=== PATIENT | female | born 1975 | race Caucasian/White ===

== ENCOUNTER → 2021-10-16 08:15 | Outpatient (CLI) | payer MEDICARE, SELFPAY ==
[2021-10-16 17:38] LABS: SARS-CoV-2 RNA PCR Negative
== END ==
PROVIDERS: PCP Nurse Practitioner Adult Health; Visit Provider Nurse Practitioner Adult Health
DX: Z20.822 Contact with and (suspected) exposure to COVID-19 (principal)
CPT/HCPCS: C9803; U0003; U0005

== ENCOUNTER 2023-08-03 11:14 | Outpatient (CLI) | payer MEDICARE, BC, SELFPAY ==
--- NOTE | ~2023-08-03 | US_ITS ---
Limited Abdominal Sonogram: Real-time sonographic imaging of the right upper quadrant was performed. Clinical History: Abnormal liver enzymes Findings: The liver appears normal with no evidence of mass lesion or bile duct dilatation. Main por kenna vein demonstrates normal direction of flow. The gallbladder is well distended, and appears normal with no evidence of gallstone or wall thickening. The common bile duct measures 4 mm. The visualize d pancreas, aorta, and IVC are unremarkable. Impression: No significant abnormality seen. Reviewed, dictated and finalized at location M. ERIST Impression: No significant abnormality seen.
== END 2023-08-03 11:15 | disposition home or self-care (01) ==
PROVIDERS: PCP Nurse Practitioner Family; Visit Provider Nurse Practitioner Family
DX: R74.8 Abnormal levels of other serum enzymes (principal)
CPT/HCPCS: 76705

== ENCOUNTER 2023-10-02 14:06 | Emergency (ER) | payer MEDICARE, BC, SELFPAY ==
--- NOTE | ~2023-10-02 | CT_ITS ---
EXAMINATION: CT cervical spine wo con DATE: 10/02/2023 17:02 INDICATION: Neck pain radiating down the right arm. Numbness in the fingertips. Fall. TECHNIQUE: Computed tomography (CT) of the cervical spine was performed without intravenous contrast. Automated exposure control and iterative reconstruction technique were employed. The dose-length pro duct was 122.13 mGy-cm. COMPARISON: None FINDINGS: There is 5 degrees dextrocurvature of cervical spine. Vertebral body heights are normal. Th ere is a hemangioma in T1 vertebral body. There is mildly decreased disc height at C3-C4 and moderate ly decreased disc height at C5-C6 and C6-C7. The following disc levels are specifically discussed: C2-C3: There is mild right and moderate left uncovertebral joint osteoarthritis. There is mild bilate ral facet joint osteoarthritis. There is mild bilateral neural foraminal stenosis. There is no centra l canal stenosis. C3-C4: There is moderate right and severe left uncovertebral joint osteoarthritis. There is mild bila teral facet joint osteoarthritis. There is mild bilateral neural foraminal stenosis. There is no cent ral canal stenosis. C4-C5: There is moderate right and mild left uncovertebral joint osteoarthritis. There is no facet kaylynn int osteoarthritis. There is mild right neural foraminal stenosis. There is no central canal stenosis . C5-C6: There is severe bilateral uncovertebral joint osteoarthritis. There is moderate right and mild left facet joint osteoarthritis. There is mild right and moderate left neural foraminal stenosis. Th ere is mild central canal stenosis. C6-C7: There is mild right and severe left uncovertebral joint osteoarthritis. There is moderate bila teral facet joint osteoarthritis. There is mild bilateral neural foraminal stenosis. There is mild ce ntral canal stenosis. C7-T1: There is no uncovertebral joint osteoarthritis. There is mild right and severe left facet join t osteoarthritis. There is mild left neural foraminal stenosis. There is no central canal stenosis. IMPRESSION: 1. No fracture. 2. Moderate cervical spondylosis. Reviewed, dictated and finalized at location A. TEACHER
[2023-10-02 14:32] VITALS: BP 148/88; PULSE 90; RESP 16; TEMP 36.4; O2SAT 99
[2023-10-02 16:39] VITALS: BP 127/82; PULSE 61; RESP 15; TEMP 36.4; O2SAT 100
--- NOTE | 2023-10-02 17:10 | ED.FALL ---
HPI - Fall General Chief Complaint: Fall Stated Complaint: neck, RLE pain Time Seen by Provider: 10/02/23 16:48 Source: patient Mode of arrival: ambulatory Limitations: no limitations and language barrier History of Present Illness HPI Narrative: Patient is a 48-year-old female who presents the ED with report of neck and right upper extremity pain. Patient is communicating to me via writing on small note pad. She reports she has a social anxiety disorder called selective mutism. She reports she tripped and fell on 09/05/2022 and injured herself. She strained her neck at that time. She was not evaluated after the fall. Since then, she has been having pain in her right-sided neck radiating down her right arm. She has intermittent numbness and tingling in her 1st two digits. Denies weakness in right upper extremity. Denies dropping objects. She has not tried anything for the pain. She has not seen anybody for this pain. Denies dizziness, lightheadedness, vision changes, head injury, nausea, vomiting. Related Data Allergies Allergy/AdvReac Type Severity Reaction Status Date / Time No Known Allergies Allergy Verified 10/02/23 14:37 Review of Systems Review of Systems: CONSTITUTIONAL: Denies fever, chills, or sweats. GASTROINTESTINAL: Denies abdominal pain, nausea, vomiting MUSCULOSKELETAL: See HPI NEUROLOGIC: See HPI All systems reviewed & are unremarkable except as noted in HPI and below Exam Narrative: GENERAL: Well appearing, thin, non-toxic, in no acute distress. HEAD: Normocephalic, atraumatic. NECK: No limited range of motion. No significant midline spinal tenderness. Tenderness to palpation along the right paraspinal musculature extending into right trapezius region. RESPIRATORY: Airway patent, respirations nonlabored. Clear to auscultation bilaterally, no rales, rhonchi, wheezing. CARDIOVASCULAR: Regular rate and rhythm without murmurs, rubs, or gallops. Radial pulses 2+ and easily palpable bilaterally. MUSCULOSKELETAL: Moves all extremities. No gross deformities. No midline thoracic or lumbar spinal tenderness. SKIN: Warm, dry, normal color. NEURO: A&O X3. Refusing to speak. cranial nerves II-XII grossly intact. Steady gait. No ataxic movements. Equal military science teacher strength bilaterally. Strength 5/5 in upper extremities. No weakness noted of right upper extremity. PSYCHIATRIC: Anxious, avoiding eye contact, refusing to speak. Course Vital Signs Vital signs: Vital Signs Temperature 97.6 F 10/02/23 14:32 Pulse Rate 90 10/02/23 14:32 Respiratory Rate 16 10/02/23 14:32 Blood Pressure 148/88 H 10/02/23 14:32 Pulse Oximetry 99 10/02/23 14:32 Temperature 97.6 F 10/02/23 16:39 Pulse Rate 61 10/02/23 16:39 Respiratory Rate 15 10/02/23 16:39 Blood Pressure 127/82 10/02/23 16:39 Pulse Oximetry 100 10/02/23 16:39 MDM - Fall MDM Narrative Medical decision making narrative: Patient present in the ED several weeks status post ground level mechanical fall, pain to right-sided neck into right upper extremity, intermittent paresthesias. Vital signs stable upon arrival. Patient neurovascularly intact. No evidence of neurovascular compromise, compartment syndrome. Symptoms consistent with cervical strain, cervical radiculopathy, tenderness throughout right-sided paraspinal musculature in cervical region. There is no weakness or sensation changes throughout right upper extremity upon my evaluation. Patient has not tried anything for pain prior to arrival. Offered to provide something in the ED, however patient declined. CT of the cervical spine was obtained and showing moderate spondylosis, no acute fractures or traumatic findings. Patient updated on imaging findings. Will be referred to Neurosurgery for further evaluation. Will prescribe lidocaine patches. Offered to prescribe muscle relaxers and patient declined. Advised to utilize Tylenol and ibuprofen if needed for pain. Give
== END 2023-10-02 17:38 | disposition home or self-care (01) ==
PROVIDERS: Emergency Provider Physician Assistant; PCP Nurse Practitioner Family
DX: S16.1XXA Strain of muscle, fascia and tendon at neck level, initial encounter (principal); M47.22 Other spondylosis with radiculopathy, cervical region; F94.0 Selective mutism; W01.0XXA Fall on same level from slipping, tripping and stumbling without subsequent striking against object, initial encounter
CPT/HCPCS: 72125; 99284

== ENCOUNTER 2023-11-02 09:55 | Outpatient (CLI) | payer MEDICARE, BC, SELFPAY ==
[2023-11-02 12:47] LABS: Hematocrit 40.7 % (37.0-47.0); Hemoglobin 13.7 g/dL (12.0-15.0); Mean Corpuscular HGB Conc 33.7 g/dl (32-36); Mean Corpuscular Hemoglobin 31.6 pg (26-34); Mean Platelet Volume 10.4 fl (7.4-10.4); Platelet Count Result 251 k/mm3 (150-375); Red Blood Count 4.33 M/mm3 (4.2-5.4); Red Cell Distribution Width 12.4 % (11.5-14.5); White Blood Count 5.4 K/mm3 (4.5-10.0)
[2023-11-02 13:03] LABS: Alanine Aminotransferase 27 U/L (6-35); Albumin Level 4.6 g/dL (3.5-5.1); Alkaline Phosphatase 66 U/L (38-126); Anion Gap 9 mmol/L (8-16); Aspartate Amino Transferase 52 U/L (14-36); Bilirubin,Total 1.8 mg/dL (0.2-1.3); Blood Urea Nitrogen 18 mg/dL (7-17); Calcium 9.8 mg/dL (8.4-10.2); Carbon Dioxide 25 mmol/L (22-30); Chloride 104 mmol/L (98-107); Cholesterol 196 mg/dL (0-200); Estimated Glomerular Filt Rate > 60; Glucose 96 mg/dL (65-110); HDL Direct 60 mg/dL; Potassium 3.6 mmol/L (3.4-5.0); Sodium 138 mmol/L (137-145); Triglycerides 88 mg/dL (<150)
[2023-11-02 13:18] LABS: Vitamin D 25 Hydroxy 53.3 ng/mL
[2023-11-02 13:26] LABS: LDL Cholesterol Direct 102 mg/dL
== END 2023-11-02 09:56 | disposition home or self-care (01) ==
LOC: ANHGOSHLAB 09:57
PROVIDERS: PCP Family Medicine; Visit Provider Nurse Practitioner
DX: E03.9 Hypothyroidism, unspecified (principal); E55.9 Vitamin D deficiency, unspecified; Z76.89 Persons encountering health services in other specified circumstances
CPT/HCPCS: 36415; 80053; 80061; 82306; 84443; 85027

== ENCOUNTER 2024-03-13 20:14 | Outpatient (NON) | payer MEDICARE, BC, SELFPAY | END 2024-03-13 20:15 | disposition home or self-care (01) | LOC: ANHLAB 20:21 | PROVIDERS: PCP Family Medicine; Visit Provider Nurse Practitioner | DX: R30.0 Dysuria (principal) | CPT/HCPCS: 87086; 87088 ==

== ENCOUNTER 2024-03-19 14:40 | Outpatient (NON) | payer MEDICARE, BC, SELFPAY ==
[2024-03-19 19:58] LABS: Appearance Urine Turbid (Clear); Bacteria Urine None Seen /hpf; Bilirubin Urine Negative (Negative); Blood Urine Negative (Negative); Calcium Oxalate Crystals Urine Present /hpf; Color Urine Yellow (Yellow); Glucose Urine UA Negative (Negative); Ketones Urine Trace mg/dL (Negative); Leukocyte Esterase Ur Negative LEU/UL (Negative); Need Manual Microscopic Reviewed; Nitrate Urine Negative (Negative); Non Pathogenic Casts 0-2; Protein Urine Negative (Negative); Specific Grav Ur 1.026 (1.001-1.035); Squamous Epithelial Cell Urine Occasional /hpf (Few); WBC Urine 0-5 /hpf (0-3)
[2024-03-19 20:00] LABS: Add Urine Microscopic? YES
== END 2024-03-19 14:41 | disposition home or self-care (01) ==
LOC: ANHGOSHLAB 14:43
PROVIDERS: PCP Family Medicine; Visit Provider Nurse Practitioner
DX: R31.9 Hematuria, unspecified (principal)
CPT/HCPCS: 81001

== ENCOUNTER 2024-04-29 15:07 | Outpatient (CLI) | payer MEDICARE, BC, SELFPAY ==
[2024-04-29 19:56] LABS: Alanine Aminotransferase 27 U/L (6-35); Albumin Level 4.6 g/dL (3.5-5.1); Alkaline Phosphatase 62 U/L (38-126); Anion Gap 10 mmol/L (4-12); Aspartate Amino Transferase 50 U/L (14-36); Bilirubin,Total 1.8 mg/dL (0.2-1.3); Blood Urea Nitrogen 17 mg/dL (7-17); Calcium 9.9 mg/dL (8.4-10.2); Carbon Dioxide 26 mmol/L (22-30); Chloride 104 mmol/L (98-107); Cholesterol 198 mg/dL (0-200); Estimated Glomerular Filt Rate > 60; Glucose 97 mg/dL (65-110); HDL Direct 62 mg/dL; Potassium 4.1 mmol/L (3.4-5.0); Sodium 140 mmol/L (137-145); Triglycerides 72 mg/dL (<150)
[2024-04-29 20:06] LABS: LDL Cholesterol Direct 98 mg/dL
[2024-04-29 20:27] LABS: Free T4 Free Thyroxine 1.44 ng/mL (0.78-2.19); Vitamin D 25 Hydroxy 29.6 ng/mL
== END 2024-04-29 15:08 | disposition home or self-care (01) ==
PROVIDERS: PCP Family Medicine; Visit Provider Nurse Practitioner
DX: E78.5 Hyperlipidemia, unspecified (principal); E55.9 Vitamin D deficiency, unspecified; E03.9 Hypothyroidism, unspecified
CPT/HCPCS: 36415; 80053; 80061; 82306; 84439; 84443

== ENCOUNTER 2024-05-02 13:06 | Outpatient (CLI) | payer MEDICARE, BC, SELFPAY ==
[2024-05-02 19:14] LABS: Bilirubin Indirect 0.9 mg/dL (0-1.1)
[2024-05-02 19:59] LABS: Hepatitis B Surface Antigen Negative (Negative)
[2024-05-02 20:05] LABS: HAV RESULT Negative (Negative); Hepatitis B Core IgM Result Negative (Negative)
[2024-05-02 20:16] LABS: Hepatitis C Virus Antibody Negative (Negative)
== END 2024-05-02 13:07 | disposition home or self-care (01) ==
LOC: ANHGOSHLAB 13:07
PROVIDERS: PCP Family Medicine; Visit Provider Nurse Practitioner
DX: R74.01 Elevation of levels of liver transaminase levels (principal); R74.8 Abnormal levels of other serum enzymes
CPT/HCPCS: 36415; 80074; 82248

== ENCOUNTER 2024-05-08 08:07 | Outpatient (CLI) | payer MEDICARE, BC, SELFPAY ==
--- NOTE | ~2024-05-08 | US_ITS ---
Limited Abdominal Sonogram: Real-time sonographic imaging of the right upper quadrant was performed. Clinical History: Abnormal serum enzyme levels Findings: The liver appears normal with no evidence of mass lesion or bile duct dilatation. Main por kenna vein demonstrates normal direction of flow. The gallbladder is well distended, and appears normal with no evidence of gallstone or wall thickening. The common bile duct measures 5 mm. The visualize d pancreas, aorta, and IVC are unremarkable. Impression: No significant abnormality seen. Reviewed, dictated and finalized at location M. Impression: No significant abnormality seen.
== END 2024-05-08 08:08 | disposition home or self-care (01) ==
PROVIDERS: PCP Family Medicine; Visit Provider Nurse Practitioner
DX: R74.8 Abnormal levels of other serum enzymes (principal)
CPT/HCPCS: 76705

== ENCOUNTER 2024-09-09 10:26 | Outpatient (CLI) | payer MEDICARE, BC, SELFPAY ==
--- NOTE | ~2024-09-09 | MR_ITS ---
EXAMINATION: MR cervical spine wo con DATE: 09/09/2024 11:14 INDICATION: Disease of the cervical. Cervical spondylosis. Spinal cord TECHNIQUE: Magnetic resonance imaging (MRI) of the cervical spine was performed without intravenous c ontrast. Sequences included sagittal T2-weighted FSE, sagittal T2-weighted FS FSE, sagittal T1-weight ed FSE, axial MERGE and axial T2-weighted FSE. COMPARISON: CT dated 10/02/2023 FINDINGS: Bone alignment is normal. Vertebral body heights are normal. T1 hyperintense hemangioma at T1. Marro w signal is otherwise normal. Moderate disc height loss at C5-C6 and C6-C7. Mild disc height loss at C4-C5 Cord signal intensity is normal. Cervical soft tissues are unremarkable. The following disc lev els are specifically discussed: C2-C3: The disc does not extend beyond the endplate margin. There is mild left and moderate right unc overtebral joint osteoarthritis. There is mild bilateral facet joint osteoarthritis. There is mild bi lateral neural foraminal stenosis. There is no central canal stenosis. C3-C4: Disc is bulging. There is moderate to severe bilateral uncovertebral joint osteoarthritis. The re is mild bilateral facet joint osteoarthritis. There is mild bilateral neural foraminal stenosis. T here is mild central canal stenosis. C4-C5: Disc is bulging. There is mild left and moderate right uncovertebral joint osteoarthritis. The re is minimal bilateral facet joint osteoarthritis. There is mild bilateral neural foraminal stenosis . There is mild central canal stenosis. C5-C6: Posterior disc osteophyte complex. There is moderate right and severe left uncovertebral joint osteoarthritis. There is mild left facet joint osteoarthritis. There is mild right and moderate left neural foraminal stenosis. There is mild central canal stenosis. C6-C7: Posterior disc osteophyte complex. There is mild right and severe left uncovertebral joint ost eoarthritis. There is moderate left and mild right facet joint osteoarthritis. There is moderate righ t and mild to moderate left neural foraminal stenosis. There is mild central canal stenosis. C7-T1: Disc is bulging. There is mild right uncovertebral joint osteoarthritis. There is mild right a nd moderate left facet joint osteoarthritis. There is mild left neural foraminal stenosis. There is n o central canal stenosis. IMPRESSION: 1. Moderate cervical spondylosis. Reviewed, dictated and finalized at location A. E SHOP SUPERVISOR
--- NOTE | ~2024-09-09 | XR_ITS ---
Lumbosacral Spine: AP and lateral views Clinical History: Pain Findings: The normal lordotic curve is maintained. Possible mild compression deformities of L1 and L2 , age-indeterminate. The intervertebral disc spaces are preserved. There is mild facet arthropathy. The sacroiliac joints are normally outlined. Impression: Possible mild compression deformities of L1 and L2, age indeterminate. Reviewed, dictated and finalized at location . NCE ASSISTANT Impression: Possible mild compression deformities of L1 and L2, age indeterminate.
--- OUTSIDE RECORDS SUMMARY | 2024-09-12 12:46 | XMS_ITS | Continuity of Care Document ---
Author Organization [facility] Address [address] [place] [address] [place] [address] Phone Care Team Providers Care Entry Level Sales Representative Name Role Phone Unavailable Unavailable Unavailable Advance Directives Directive Yes / No Effective Date File Name No Information Encounters Encounter Description Practice Location Reason(s) For Visit Diagnoses Date Provider Providers Copied on Encounter [facility], [address] [place] [address] [address], [place], [place], [id number], [place] tel:[phone] SEC [facility] No Information [id number] No Information Family History Family Member Type Diagnosis Age At Onset No Information Payers Payer name Insurance type Covered green party ID Authoriza tion(s) No Information Social History [...]
--- OUTSIDE RECORDS SUMMARY | 2024-09-12 12:46 | XMS_ITS | CONTINUITY OF CARE DOCUMENT ---
Author Name meghana kowalski Address Unknown Organization [facility] Address [address] [place] [address] [address] [place] [address] Phone [phone] Care Team Providers Care Automotive Drivability Technician Name Role Phone Barbara Flores MD Unavailable DENISE SALDANA MD Unavailable DENISE SALDANA MD Unavailable INSURANCE PROVIDERS Payer name Policy type / Coverage type [place] red constitution party ID [facility] [id number] [place] [employer] Medicare [id number]
== END 2024-09-09 10:27 | disposition home or self-care (01) ==
PROVIDERS: PCP Family Medicine; Visit Provider Psychiatry & Neurology Neurology
DX: M43.02 Spondylolysis, cervical region (principal)
CPT/HCPCS: 72100; 72141

== ENCOUNTER 2024-12-10 10:21 | Outpatient (CLI) | payer MEDICARE, BC, SELFPAY ==
--- OUTSIDE RECORDS SUMMARY | 2024-12-10 11:50 | XMS_ITS | CONTINUITY OF CARE DOCUMENT ---
Author Name meghana kowalski Address Unknown Organization [facility] Address [address] [place] [address] [address] [place] [address] Phone [phone] Care Team Providers Care Supervisor Color Making Name Role Phone Barbara Flores MD Unavailable DENISE SALDANA MD Unavailable DENISE SALDANA MD Unavailable [phone] INSURANCE PROVIDERS Payer name Policy type / Coverage type [place] red alliance party ID [facility] [id number] [place] MEDIC[employer] Medicare [id number]
--- OUTSIDE RECORDS SUMMARY | 2024-12-10 11:50 | XMS_ITS | Continuity of Care Document ---
Author Organization formerly [facility] Address [address] [place] [address] [place] [address] Phone Care Team Providers Care Senior Business Intelligence Analyst Name Role Phone Unavailable Unavailable Unavailable Advance Directives Directive Yes / No Effective Date File Name No Information Encounters Encounter Description Practice Location Reason(s) For Visit Diagnoses Date Provider Providers Copied on Encounter [facility], [address] [place] [address] [address], [place], [place], [id number], [place] tel:[phone] SEC [facility] No Information [id number] No Information Family History Family Member Type Diagnosis Age At Onset No Information Payers Payer name Insurance type Covered alliance party ID Authoriza tion(s) No Information Social [...]
[2024-12-10 14:37] LABS: Alanine Aminotransferase 28 U/L (6-35); Albumin Level 4.8 g/dL (3.5-5.1); Alkaline Phosphatase 86 U/L (38-126); Anion Gap 11 mmol/L (4-12); Aspartate Amino Transferase 37 U/L (14-36); Bilirubin,Total 1.2 mg/dL (0.2-1.3); Blood Urea Nitrogen 22 mg/dL (7-17); Calcium 9.6 mg/dL (8.4-10.2); Carbon Dioxide 24 mmol/L (22-30); Chloride 104 mmol/L (98-107); Cholesterol 215 mg/dL (0-200); Estimated Glomerular Filt Rate > 60; Glucose 90 mg/dL (65-110); HDL Direct 67 mg/dL; Hematocrit 44.4 % (37.0-47.0); Hemoglobin 14.9 g/dL (12.0-15.0); Mean Corpuscular HGB Conc 33.6 g/dl (32-36); Mean Corpuscular Hemoglobin 31.4 pg (26-34); Mean Corpuscular Volume 93.5 fl (80-100); Mean Platelet Volume 10.7 fl (7.4-10.4); Platelet Count Result 265 k/mm3 (150-375); Potassium 4.5 mmol/L (3.4-5.0); Red Blood Count 4.75 M/mm3 (4.2-5.4); Red Cell Distribution Width 12.1 % (11.5-14.5); Sodium 139 mmol/L (137-145); Triglycerides 66 mg/dL (<150); White Blood Count 5.3 K/mm3 (4.5-10.0)
[2024-12-10 14:48] LABS: LDL Cholesterol Direct 102 mg/dL
[2024-12-10 14:52] LABS: Free T4 Free Thyroxine 1.42 ng/dL (0.78-2.19); Vitamin D 25 Hydroxy 35.9 ng/mL
== END 2024-12-10 10:22 | disposition home or self-care (01) ==
LOC: ANHGOSHLAB 10:22
PROVIDERS: PCP Family Medicine; Visit Provider Nurse Practitioner
DX: E03.9 Hypothyroidism, unspecified (principal); R74.8 Abnormal levels of other serum enzymes; I10 Essential (primary) hypertension; E78.5 Hyperlipidemia, unspecified; E55.9 Vitamin D deficiency, unspecified
CPT/HCPCS: 36415; 80053; 80061; 82306; 84439; 84443; 85027

== ENCOUNTER 2024-12-16 07:00 | Outpatient (CLI) | payer MEDICARE, BC, SELFPAY ==
--- NOTE | ~2024-12-16 | MR_ITS ---
MRI of the lumbar spine Clinical History: Back pain Technique: Axial T2-weighted images, and sagittal T1-weighted, T2-weighted, and T2 fat-sat images wer e acquired. Findings: No fracture identified. There is minimal grade 1 retrolisthesis of L1 over L2. No suspiciou s bone marrow signal abnormality seen. At L1-L2, there is moderate degenerative distended with minimal disc bulge and moderate facet arthrop athy. No central canal stenosis or neural foraminal narrowing. At L2-L3, there is no disc bulge or herniation. There is mild to moderate facet arthropathy. No centr al canal stenosis or neural foraminal narrowing. L3-L4, there is no disc bulge or herniation. No spinal canal stenosis or neural foraminal narrowing. At L4-L5, there is minimal disc bulge with moderate facet arthropathy. No central canal stenosis. The re is mild left neural foraminal narrowing. Right neural foramen preserved. At L5-S1, there is minimal disc bulge and mild facet hypertrophy. No spinal canal stenosis. There is minimal left neural foraminal narrowing. Right neural foramen preserved. Paravertebral soft tissues are unremarkable. IMPRESSION: Mild degenerative spondylosis, as above. Reviewed, dictated and finalized at [facility] M.
== END 2024-12-16 07:01 | disposition home or self-care (01) ==
LOC: MICIMG 07:01
PROVIDERS: PCP Family Medicine; Visit Provider Psychiatry & Neurology Neurology
DX: S32.000A Wedge compression fracture of unspecified lumbar vertebra, initial encounter for closed fracture (principal); X58.XXXA Exposure to other specified factors, initial encounter; M47.896 Other spondylosis, lumbar region
CPT/HCPCS: 72148

== ENCOUNTER 2025-06-27 11:23 | Outpatient (CLI) | payer BC, SELFPAY ==
--- OUTSIDE RECORDS SUMMARY | 1999-07-19 09:00 | XMS_ITS | Continuity of Care Document ---
Author Organization [facility] Address [address] [place] [address] [place] [address] Phone Care Team Providers Care Chemistry Intern Name Role Phone Unavailable Unavailable Unavailable Advance Directives Directive Yes / No Effective Date File Name No Information Encounters Encounter Description Practice Location Reason(s) For Visit Diagnoses Date Provider Providers Copied on Encounter [facility], [address] [place] [address] [address], [place], [place], [id number], [place] tel:[phone] SEC [facility] No Information [id number] No Information Family History Family Member Type Diagnosis Age At Onset No Information Payers Payer name Insurance type Covered democrat ID Authoriza tion(s) No Information Social History Type Description Quantity Date Captured Comments Sex Female Smoking Status No Information Chief Complaint And Reason For Visit No Information Reason For Referral Reason For Referral No Information History Of Present Illness Encounter Date Complaint History Of Prese nt Illness No Information Functional Status Date Functional Assessmen t No Information Instructions Date Instruction Additional Infor mation No Information Assessments Type Assessment Date No Information Patient Care Teams Name Effective Dates (start - stop) Status Members No Information
--- OUTSIDE RECORDS SUMMARY | 2025-06-27 12:02 | XMS_ITS | Patient Health Record ---
Author Organization [facility] Address [address] [facility] [address] [place] [address] Care Team Providers Care Head Of Digital Name Role Phone Liz Wilkins Unavailable [phone] Reason For Referral No Information Medications Medication SIG (Take, Route, Frequency, Duration) Notes Start Date End Date Status Synthroid 50 MCG Tablet Oral Active Citalopram Hydrobromide 40 MG Tablet Oral Active Social History Social History Additional Details Category Social Info Options Details Migrated Social History Migrated Social History Tobacco Years: Never smoker 10/13/2022 Plan Of Treatment No Information Insurance Providers Payer Name Payer Address Payer Phone Subscriber Number Group Number Insured Name Patient Relationship to Insured Coverage Start Date Coverage End Date [facility] Ppo [address] [place] [address] [id number] Self - [facility] is the insured [facility] [address] [address] [place] [address] [id number] [address] Self - patient is the insured
[2025-06-27 13:07] LABS: Alanine Aminotransferase 27 U/L (6-35); Albumin Level 4.7 g/dL (3.5-5.1); Alkaline Phosphatase 67 U/L (38-126); Anion Gap 9 mmol/L (4-12); Aspartate Amino Transferase 45 U/L (14-36); Bilirubin,Total 2.3 mg/dL (0.2-1.3); Blood Urea Nitrogen 20 mg/dL (7-17); Calcium 9.3 mg/dL (8.4-10.2); Carbon Dioxide 23 mmol/L (22-30); Chloride 106 mmol/L (98-107); Cholesterol 197 mg/dL (0-200); Estimated Glomerular Filt Rate > 60; Glucose 87 mg/dL (65-110); HDL Direct 62 mg/dL; Potassium 3.9 mmol/L (3.4-5.0); Sodium 138 mmol/L (137-145); Total Protein 7.3 g/dL (6.3-8.2); Triglycerides 62 mg/dL (<150)
[2025-06-27 13:16] LABS: Free T4 Free Thyroxine 1.65 ng/dL (0.78-2.19)
[2025-06-27 13:44] LABS: Thyroid Stimulating Hormone 2.870 uIU/mL (0.465-4.680)
== END 2025-06-27 11:24 | disposition home or self-care (01) ==
LOC: ANHGOSHLAB 11:23
PROVIDERS: PCP Nurse Practitioner; Visit Provider Nurse Practitioner
DX: R74.8 Abnormal levels of other serum enzymes (principal); E03.9 Hypothyroidism, unspecified; E78.5 Hyperlipidemia, unspecified
CPT/HCPCS: 36415; 80053; 80061; 84439; 84443

== ENCOUNTER 2025-07-14 09:42 | Outpatient (CLI) | payer BC, SELFPAY ==
[2025-07-14 13:03] LABS: Hematocrit 42.5 % (37.0-47.0); Hemoglobin 14.0 g/dL (12.0-15.0); Mean Corpuscular HGB Conc 32.9 g/dl (32-36); Mean Corpuscular Hemoglobin 31.3 pg (26-34); Mean Corpuscular Volume 95.1 fl (80-100); Platelet Count Result 280 k/mm3 (150-375); Red Blood Count 4.47 M/mm3 (4.2-5.4); White Blood Count 5.3 K/mm3 (4.5-10.0)
[2025-07-14 13:12] LABS: Add Urine Microscopic? YES
[2025-07-14 13:17] LABS: Appearance Urine Turbid (Clear)
[2025-07-14 14:15] LABS: Hepatitis B Surface Antigen Negative (Negative)
[2025-07-14 14:21] LABS: HAV RESULT Negative (Negative); Hepatitis B Core IgM Result Negative (Negative)
== END 2025-07-14 09:43 | disposition home or self-care (01) ==
LOC: ANHGOSHLAB 09:43
PROVIDERS: PCP Nurse Practitioner; Visit Provider Nurse Practitioner
DX: R17 Unspecified jaundice (principal); R31.9 Hematuria, unspecified; R74.8 Abnormal levels of other serum enzymes
CPT/HCPCS: 36415; 80074; 81001; 85027

== ENCOUNTER 2025-07-21 15:32 | Emergency (ER) | payer BC, SELFPAY ==
[2025-07-21] VITALS (17 sets, daily range): BP systolic 117–150; BP diastolic 81–99; PULSE 72–94; RESP 14–18; TEMP 36.6–36.8; O2SAT 97–100
--- NOTE | ~2025-07-21 | CT_ITS ---
CT abdomen pelvis w con INDICATION:abdominal pain . COMPARISON: None. TECHNIQUE: Axial images of the abdomen and pelvis were obtained following infusion of 100 mL Isovue 300. Dose optimization technique was utilized. FINDINGS: The lung bases are clear. The liver parenchyma is unremarkable. No intrahepatic mass or ductal dilatation is evident. The gallbladder is unremarkable. The pancreas and spleen are normal in appearance. The adrenal glands are symmetric in size. The kidneys demonstrate symmetric uptake and excretion of contrast. Left renal cyst measures 9 mm. There is no solid mass. Mild right hydronephrosis secondary to a 10 x 6.8 mm stone at the ureteropelvic junction. There is no left hydronephrosis. Evaluation of the stomach and bowel loops are limited due to lack of oral contrast. The appendix is normal in appearance. The bladder and rectum are normal. No free intraperitoneal fluid or air is evident. There is no significant retroperitoneal lymphadenopathy. The aorta, visceral vessels and renal arteries demonstrate normal caliber and patency. The lower thoracic and lumbar vertebrae are in normal alignment. IMPRESSION: Mild right hydronephrosis secondary to a 10 x 6.8 mm stone at the UPJ. All CT scans at this facility are performed using low dose modulation techniques as appropriate to perform exam including the following: automated exposure control; use of iterative reconstruction technique; adjustment of the mA and/or kV according to patient size (this includes techniques or standardized protocols for targeted exams where dose is matched to indication/reason for exam). Reviewed, dictated and finalized at location S. NOM[facility] RESEARCH MANAGER IMPRESSION: Mild right hydronephrosis secondary to a 10 x 6.8 mm stone at the UPJ. All CT scans at this facility are performed using low dose modulation techniqu es as appropriate to perform exam including the following: automated exposure c ontrol; use of iterative reconstruction technique; adjustment of the mA and/or kV according to patient size (this includes techniques or standardized protocol s for targeted exams where dose is matched to indication/reason for exam).
--- NOTE | 2025-07-21 17:15 | ED.GENADULT ---
HPI - General Adult General Chief complaint: Urogenital-Female <LUCIAN Mcdaniels - Last Filed: 07/21/25 17:21> Stated complaint: uti <LUCIAN Mcdaniels - Last Filed: 07/21/25 17:21> Time Seen by Provider: 07/21/25 22:16 <LUCIAN Mcdaniels - Last Filed: 07/21/25 17:21> Focused HPI: 50 year old female presenting with concerns for a UTI. She reports she recently finished a course of antibiotics but is still experiencing increased urinary frequency/urgency as well as hematuria. She is also reporting diffuse lower abdominal pain and nausea. Denies fevers/chills, vomiting, diarrhea, chest pain/shortness of breath. GENERAL: No acute distress. HEAD: Normocephalic, atraumatic. CHEST: Clear to auscultation. ?No respiratory distress. HEART: Regular rate and rhythm.? NEURO: ?Alert and oriented x3. ABDOMEN: RLQ TTP Patient screened in triage and initial orders placed.? ?Additional care and disposition to be based upon?diagnostic testing and treatment. <LUCIAN Mcdaniels - Last Filed: 07/21/25 17:21> Source: patient <Keenan Melo DO - Last Filed: 07/21/25 23:12> Mode of arrival: ambulatory <Keenan Melo DO - Last Filed: 07/21/25 23:12> Limitations: no limitations <Keenan Melo DO - Last Filed: 07/21/25 23:12> History of Present Illness HPI narrative: Patient is a 50-year-old female presents to the emergency department accompanied by family with concerns for UTI. 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 Patient reportedly had a recent urinary tract infection with urinary frequency and was treated and completed treatment a couple days ago and still seems to be having symptoms. Patient does admit to some intermittent back discomfort. Denies any pain currently. Patient admits to nausea, denies vomiting. No known fevers. <Keenan Melo DO - Last Filed: 07/21/25 23:12> Related Data Home medications: Home Medications ?Medication ?Instructions ?Recorded ?Confirmed ?Last Taken ?Type multivitamin 1 tablet PO DAILY 11/02/23 06/19/25 Unknown History <LUCIAN Mcdaniels - Last Filed: 07/21/25 17:21> Allergies/adverse reactions: Allergies Allergy/AdvReac Type Severity Reaction Status Date / Time No Known Allergies Allergy Verified 07/21/25 16:06 <LUCIAN Mcdaniels - Last Filed: 07/21/25 17:21> Review of Systems Review of Systems: A 10 system review of systems was completed on the patient and is negative except for what is stated in the HPI. Nursing and ancillary documentation was reviewed. <Keenan Melo DO - Last Filed: 07/21/25 23:12> [facility] Past Medical History Medical History: Medical History BMI 20.0-20.9, adult Compression fracture of lumbosacral spine Lower back pain Cervical myelopathy with cervical radiculopathy <LUCIAN Mcdaniels - Last Filed: 07/21/25 17:21> Family History Family History: Family History Father Malignant neoplasm of prostate Hypertension Heart problem Cerebrovascular accident Mother Diabetes mellitus Hypertension Sibling Depression Anxiety Thyroid disorder Grandparent Hypertension Heart problem <LUCIAN Mcdaniels - Last Filed: 07/21/25 17:21> Social History Social History: Social History Social History: Caffeine- Tea, Cola Smoking status: Never smoker Second hand tobacco smoke exposure: No Alcohol intake: never Substance use: never Substance use type: does not use Lack of Transportation: No Lack of Food: Never True Current Housing: I Have Housing Concerned About Future Housing: No Difficulty Paying Gas/Electric Bills: No Difficulty Paying for Meds: No Currently Unemployed: No Education: High School Diploma/GED Difficulty w/ Childcare or Family Care: No Living arrangements: with family Occupation/Education: unemployed Gender identity (if verbalized by the patient): Female <LUCIAN Mcdaniels - Last Filed: 07/21/25 17:21> Exam Narrative: CONST: No acute distress. Well nourished. HENMT: Head is normocephalic and atraumatic. Moist mucous membranes. No posterior oropharynx erythema. EYES: No scleral icterus. No conjunctival injection or pallor. PERRL. NECK: No meningeal signs. RESP: Able to speak in full sentences. Normal respiratory effort. CTAB. CARDIO: Regular rate. Regular rhythm. 2+ DP and radial pulses bilaterally. GI: Nondistended. No tenderness to palpation. Soft. : No CVA tenderness to palpation. SKIN: No rashes or lesions noted on exposed skin. NEURO: Oriented x3. Moves all extremities. EXTREM/MSK/BACK: No pedal edema. PSYCH: Normal affect. <Keenan Melo DO - Last Filed: 07/21/25 23:12> Course Vital Signs Vital signs: Vital Signs Temperature 97.8 F 07/21/25 16:00 Pulse Rate 94 07/21/25 16:00 Respiratory Rate 16 07/21/25 16:00 Blood Pressure 150/81 H 07/21/25 16:00 Pulse Oximetry 100 07/21/25 16:00 Oxygen Delivery Room Air 07/21/25 16:00 Temperature 97.9 F 07/21/25 19:58 Pulse Rate 79 07/21/25 22:16 Respiratory Rate 14 07/21/25 22:16 Blood Pressure 139/99 H 07/21/25 22:16 Pulse Oximetry 99 07/21/25 22:16 Oxygen Delivery Room Air 07/21/25 16:00 <LUCIAN Mcdaniels - Last Filed: 07/21/25 17:21> Vital Signs Temperature 97.8 F 07/21/25 16:00 Pulse Rate 94 07/21/25 16:00 Respiratory Rate 16 07/21/25 16:00 Blood Pressure 150/81 H 07/21/25 16:00 Pulse Oximetry 100 07/21/25 16:00 Oxygen Delivery Room Air 07/21/25 16:00 Temperature 97.9 F 07/21/25 19:58 Pulse Rate 79 07/21/25 22:16 Respiratory Rate 14 07/21/25 22:16 Blood Pressure 139/99 H 07/21/25 22:16 Pulse Oximetry 99 07/21/25 22:16 Oxygen Delivery Room Air 07/21/25 16:00 <Keenan Melo DO - Last Filed: 07/21/25 23:12> [facility] Narrative Medical decision making narrative: Patient presents with the above complaint. Initial vitals are remarkable for no significant abnormalities. Physical examination as noted above. Plan discussed: laboratory analysis,imaging. Zofran, IV fluids. I spoke with Urology on-call Dr. luu who notes no need to keep the patient in the hospital for this, likely unable to pass the stone, will need to follow-up with them promptly tomorrow, call to schedule an appointment, notes no need for any antibiotics, strict return precautions such as fevers or any new or concerning pain her admitted keep anything down by mouth. <Keenan Melo DO - Last Filed: 07/21/25 23:12> Differential Diagnosis Differential Diagnosis: UTI, ureterolithiasis, metabolic derangement, electrolyte derangement. <Keenan Melo DO - Last Filed: 07/21/25 23:12> Lab Data [facility] Lab Attestation statement: I personally reviewed the patient's lab results. <Keenan Melo DO - Last Filed: 07/21/25 23:12> Lab results narrative: CBC reveals no significant abnormalities. CMP reveals a BUN 18, total bilirubin of 2. Lipase 91. Urinalysis reveals a cloudy appearance, 3+ protein, 1+ ketones, 3+ blood, 1+ leukocyte esterase, greater than 100 RBCs, 11-20 wbc's, no bacteria seen. Present test is negative. <Keenan Melo DO - Last Filed: 07/21/25 23:12> Result diagrams: 07/21/25 21:41 07/21/25 21:40 <Lisette Zarate PA - Last Filed: 07/21/25 17:21> Labs: Lab Results 07/21/25 07/21/25 Range/Units 21:40 21:41 WBC 6.0 (4.5-10.0) K/mm3 RBC 4.40 (4.2-5.4) M/mm3 Hgb 13.9 (12.0-15.0) g/dL Hct 40.7 (37.0-47.0) % MCV 92.5 (80-100) fl MCH 31.6 (26-34) pg MCHC 34.2 (32-36) g/dl RDW 12.1 (11.5-14.5) % Plt Count 274 (150-375) k/mm3 MPV 9.5 (7.4-10.4) fl Immature Gran % (Auto) 0.2 (0-0.5) % Neut % (Auto) 53.6 (45.5-73.1) % Lymph % (Auto) 33.4 (18.3-44.2) % Miller % (Auto) 10.4 H (2.6-8.5) % Eos % (Auto) 1.2 (0-4.4) % Baso % (Auto) 1.2 (0.2-1.2) % Lymph # (Auto) 1.99 (0.9-3.2) K/mm3 Miller # (Auto) 0.6 (0.1-0.6) K/mm3 Eos # (Auto) 0.1 (0-0.3) K/mm3 Baso # (Auto) 0.1 (0.0-0.1) K/mm3 Abs Immat Gran (auto) 0.01 (0.00-0.031) K/mm3 Absolute Neuts (auto) 3.2 (1.3-6.7) K/mm3 Absolute Nucleated RBC 0.000 (0.0-0.012) K/mm3 Nucleated RBC % 0.0 (0.0-0.2) % Sodium 139 (137-145) mmol/L Potassium 3.9 (3.4-5.0) mmol/L Chloride 108 H (98-107) mmol/L Carbon Dioxide 26 (22-30) mmol/L Anion Gap 5 (4-12) mmol/L BUN 18 H (7-17) mg/dL Creatinine 0.82 (0.7-1.0) mg/dL Estim Creat Clear Calc 59 ml/min Estimated GFR > 60 (59 - ) Glucose 96 (65-110) mg/dL Calcium 9.9 (8.4-10.2) mg/dL Total Bilirubin 2.0 H (0.2-1.3) mg/dL AST 30 (14-36) U/L ALT 24 (6-35) U/L Alkaline Phosphatase 60 (38-126) U/L Total Protein 7.2 (6.3-8.2) g/dL Albumin 4.6 (3.5-5.1) g/dL Lipase 91 (23-300) U/L Urine Color Dark yellow (Yellow) Urine Appearance Cloudy H (Clear) Urine pH 7.5 (5.0-9.0) Ur Specific [place] 1.024 (1.001-1.035) Urine Protein 3+ H (Negative) mg/dL Urine Glucose (UA) Negative (Negative) mg/dL Urine Ketones 1+ H (Negative) mg/dL Ur Blood (Man) 3+ H (Negative) Urine Nitrate Negative (Negative) Urine Bilirubin Negative (Negative) Urine Urobilinogen 1.0 (<2.0) mg/dL Leukocyte Esterase Rfl 1+ H (Negative) KASI/UL Urine RBC >100 H (0-2) /hpf Urine WBC 11-20 H (0-3) /hpf Ur Squamous Epith Cells None seen (Few) /hpf Urine Bacteria None seen /hpf Urine Casts 0-2 Urine Test Negative <LUCIAN Mcdaniels - Last Filed: 07/21/25 17:21> Lab Results 07/21/25 07/21/25 Range/Units 21:40 21:41 WBC 6.0 (4.5-10.0) K/mm3 RBC 4.40 (4.2-5.4) M/mm3 Hgb 13.9 (12.0-15.0) g/dL Hct 40.7 (37.0-47.0) % MCV 92.5 (80-100) fl MCH 31.6 (26-34) pg MCHC 34.2 (32-36) g/dl RDW 12.1 (11.5-14.5) % Plt Count 274 (150-375) k/mm3 MPV 9.5 (7.4-10.4) fl Immature Gran % (Auto) 0.2 (0-0.5) % Neut % (Auto) 53.6 (45.5-73.1) % Lymph % (Auto) 33.4 (18.3-44.2) % Miller % (Auto) 10.4 H (2.6-8.5) % Eos % (Auto) 1.2 (0-4.4) % Baso % (Auto) 1.2 (0.2-1.2) % Lymph # (Auto) 1.99 (0.9-3.2) K/mm3 Miller # (Auto) 0.6 (0.1-0.6) K/mm3 Eos # (Auto) 0.1 (0-0.3) K/mm3 Baso # (Auto) 0.1 (0.0-0.1) K/mm3 Abs Immat Gran (auto) 0.01 (0.00-0.031) K/mm3 Absolute Neuts (auto) 3.2 (1.3-6.7) K/mm3 Absolute Nucleated RBC 0.000 (0.0-0.012) K/mm3 Nucleated RBC % 0.0 (0.0-0.2) % Sodium 139 (137-145) mmol/L Potassium 3.9 (3.4-5.0) mmol/L Chloride 108 H (98-107) mmol/L Carbon Dioxide 26 (22-30) mmol/L Anion Gap 5 (4-12) mmol/L BUN 18 H (7-17) mg/dL Creatinine 0.82 (0.7-1.0) mg/dL Estim Creat Clear Calc 59 ml/min Estimated GFR > 60 (59 - ) Glucose 96 (65-110) mg/dL Calcium 9.9 (8.4-10.2) mg/dL Total Bilirubin 2.0 H (0.2-1.3) mg/dL AST 30 (14-36) U/L ALT 24 (6-35) U/L Alkaline Phosphatase 60 (38-126) U/L Total Protein 7.2 (6.3-8.2) g/dL Albumin 4.6 (3.5-5.1) g/dL Lipase 91 (23-300) U/L Urine Color Dark yellow (Yellow) Urine Appearance Cloudy H (Clear) Urine pH 7.5 (5.0-9.0) Ur Specific [place] 1.024 (1.001-1.035) Urine Protein 3+ H (Negative) mg/dL Urine Glucose (UA) Negative (Negative) mg/dL Urine Ketones 1+ H (Negative) mg/dL Ur Blood (Man) 3+ H (Negative) Urine Nitrate Negative (Negative) Urine Bilirubin Negative (Negative) Urine Urobilinogen 1.0 (<2.0) mg/dL Leukocyte Esterase Rfl 1+ H (Negative) KASI/UL Urine RBC >100 H (0-2) /hpf Urine WBC 11-20 H (0-3) /hpf Ur Squamous Epith Cells None seen (Few) /hpf Urine Bacteria None seen /hpf Urine Casts 0-2 Urine Test Negative <Keenan Melo DO - Last Filed: 07/21/25 23:12> Imaging Data Attestation: I personally reviewed and interpreted this imaging study as follows: <DO Augustus Rubin Last Filed: 07/21/25 23:12> Radiologist's impression: ITS Impressions Abdomen/Pelvis CT 07/21/25 22:36 IMPRESSION: Mild right hydronephrosis secondary to a 10 x 6.8 mm stone at the UPJ. All CT scans at this facility are performed using low dose modulation techniques as appropriate to perform exam including the following: automated exposure control; use of iterative reconstruction technique; adjustment of the mA and/or kV according to patient size (this includes techniques or standardized protocols for targeted exams where dose is matched to indication/reason for exam). <LUCIAN Mcdaniels Last Filed: 07/21/25 17:21> ITS Impressions Abdomen/Pelvis CT 07/21/25 22:36 IMPRESSION: Mild right hydronephrosis secondary to a 10 x 6.8 mm stone at the UPJ. All CT scans at this facility are performed using low dose modulation techniques as appropriate to perform exam including the following: automated exposure control; use of iterative reconstruction technique; adjustment of the mA and/or kV according to patient size (this includes techniques or standardized protocols for targeted exams where dose is matched to indication/reason for exam). <DO Augustus Rubin Last Filed: 07/21/25 23:12> Discharge Plan Discharge Clinical Impression: Ureterolithiasis <LUCIAN Mcdaniels Last Filed: 07/21/25 17:21> Patient Disposition: Home <LUCIAN Mcdaniels Last Filed: 07/21/25 17:21> Condition: Stable <LUCIAN Mcdaniels Last Filed: 07/21/25 17:21> Instructions: Antibiotic Form, Kidney Stones (ED), How to Strain Your Urine (ED) <LUCIAN Mcdaniels Last Filed: 07/21/25 17:21> Additional Instructions: Strain all urine, Zofran as needed for nausea, Motrin as needed for pain, follow-up with urology 2 mi as you are unlikely to pass the stone on her own, return immediately to the emergency department for any new or concerning symptoms especially fever, inability keep anything down by mouth, intractable pain, or any emergent concerns for life, limb, eyesight. <LUCIAN Mcdaniels Last Filed: 07/21/25 17:21> Patient Language: Lao <LUCIAN Mcdaniels Last Filed: 07/21/25 17:21> Prescriptions: New ibuprofen 400 mg tablet 400 mg PO Q6H PRN (Reason: pain) Qty: 30 0RF ondansetron 4 mg tablet,disintegrating 4 mg PO Q8H PRN (Reason: nausea and vomiting) Qty: 14 0RF No Action multivitamin Tablet 1 tablet PO DAILY lidocaine 5 % adhesive patch,medicated 1 patch topical DAILY Qty: 30 2RF Rx Instructions: leave on most painful area for up to 12 hrs gabapentin 300 mg capsule 300 mg PO BID Qty: 60 0RF meloxicam 15 mg tablet 15 mg PO DAILY Qty: 30 1RF Rx Instructions: 1 tablet daily after meal levothyroxine [Synthroid] 50 mcg tablet 50 mcg PO DAILY Qty: 90 1RF citalopram 40 mg tablet See Rx Instructions .ROUTE .COMPLEX Qty: 90 1RF Dose Instruction: Take 1 tablet by mouth once daily Rx Instructions: Take 1 tablet by mouth once daily <LUCIAN Mcdaniels Last Filed: 07/21/25 17:21> Follow-up/Referrals: Francisco Luu MD [Physician, Urology] - 1 Day Marixa Gaines APRN [Primary Care Provider, Internal Medicine] <LUCIAN Mcdaniels Last Filed: 07/21/25 17:21> Time of Disposition: 23:12 <LUCIAN Mcdaniels - Last Filed: 07/21/25 17:21> 23:12 <Keenan Melo DO - Last Filed: 07/21/25 23:12>
[2025-07-21 21:49] LABS: Hematocrit 40.7 % (37.0-47.0); Hemoglobin 13.9 g/dL (12.0-15.0); Immature Granulocyte Percent A 0.2 % (0-0.5); Lymphocytes Absolute Auto 1.99 K/mm3 (0.9-3.2); Mean Corpuscular HGB Conc 34.2 g/dl (32-36); Mean Corpuscular Hemoglobin 31.6 pg (26-34); Mean Corpuscular Volume 92.5 fl (80-100); Nucleated Red Blood Cells Absolute Auto 0.000 K/mm3 (0.0-0.012); Nucleated Red Blood Cells Perc 0.0 % (0.0-0.2); Platelet Count Result 274 k/mm3 (150-375); Red Blood Count 4.40 M/mm3 (4.2-5.4); White Blood Count 6.0 K/mm3 (4.5-10.0)
[2025-07-21 22:01] LABS: Add Urine Microscopic? YES; Appearance Urine Cloudy (Clear); Glucose Urine UA Negative (Negative); Leukocyte Esterase Ur 1+ LEU/UL (Negative); Nitrate Urine Negative (Negative); Non Pathogenic Casts 0-2; Specific Grav Ur 1.024 (1.001-1.035)
[2025-07-21 22:12] LABS: Lipase 91 U/L (23-300)
[2025-07-21 22:13] LABS: Alanine Aminotransferase 24 U/L (6-35); Albumin Level 4.6 g/dL (3.5-5.1); Alkaline Phosphatase 60 U/L (38-126); Anion Gap 5 mmol/L (4-12); Aspartate Amino Transferase 30 U/L (14-36); Bilirubin,Total 2.0 mg/dL (0.2-1.3); Blood Urea Nitrogen 18 mg/dL (7-17); Calcium 9.9 mg/dL (8.4-10.2); Carbon Dioxide 26 mmol/L (22-30); Chloride 108 mmol/L (98-107); Estimated CRCL calculation 59 ml/min; Estimated Glomerular Filt Rate > 60; Glucose 96 mg/dL (65-110); Potassium 3.9 mmol/L (3.4-5.0); Sodium 139 mmol/L (137-145); Total Protein 7.2 g/dL (6.3-8.2)
[2025-07-21 22:16] LABS: Pregnancy On Board Control Positive
[2025-07-21] MEDS: ONDANSETRON INJ 4 MG/2 ML VIAL IV PUSH (23:34)
[2025-07-21] MEDS: SODIUM CHLORIDE 0.9% IV 1,000 ML 999 ML IV CONT (23:34)
[2025-07-22] VITALS: O2SAT 100
[2025-07-22 00:01] VITALS: BP 124/79; O2SAT 100
[2025-07-22 00:15] VITALS: O2SAT 99
== END 2025-07-22 00:48 | disposition home or self-care (01) ==
PROVIDERS: Emergency Provider Student in an Organized Health Care Education/Training Program; PCP Nurse Practitioner
DX: N13.2 Hydronephrosis with renal and ureteral calculous obstruction (principal)
CPT/HCPCS: 36415; 74177; 80053; 81001; 81025; 83690; 85025; 87086; 96361; 96374; 99284; J2405; J7030; Q9967

== ENCOUNTER 2025-07-31 07:44 | Outpatient (CLI) | payer MEDICARE, BC, SELFPAY ==
--- NOTE | ~2025-07-31 | US_ITS ---
EXAMINATION: US abdomen complete, 07/31/2025 8:03 TELEVISION CABINET FINISHER HISTORY: R17 - Unspecified jaundice COMPARISON: None Technique: Diaz-scale and color Doppler images were obtained. Findings: LIVER: Liver measures 11.6 cm, the left lobe liver is not well visualized. . GALLBLADDER/BILIARY: Unremarkable.No cholelithiais, wall thickening or pericholecystic fluid. No biliary dilatation. CBD normal. [place] sign negative. PANCREAS: Pancreas limited by bowel gas. SPLEEN: Spleen 8.5 cm, no splenic lesions identified.. KIDNEYS: Right Kidney: Right kidney 9.7 x 2.3 x 4.8 cm, calculus measures 1.4 x 0.5 x 0.6 cm, this appears to be within the renal pelvis, no hydronephrosis. Left Kidney: Left kidney 8.5 x 3.6 x 5.3 cm, there is a complex calcified cystic focus measuring 1 x 1 cm. AORTA: Normal caliber aorta. IVC: Unremarkable. FREE FLUID: None. Impression: 1. Calcified focus within the right renal pelvis without significant hydronephrosis. This appears relatively unchanged compared to the prior exam and may represent a calculus within the collecting system however a calcified lesion is not excluded. Correlate with urinalysis. Ureteroscopy may be of benefit. 2. Complex appearing cystic focus within the left kidney which appears partially calcified although there is no corresponding lesion noted in this area on the previous CT. This may not represent a partially calcified complex cyst, with etiologies are not excluded. Six-month follow-up is recommended to assess stability. Reviewed, dictated and finalized at location P. VISION CABINET FINISHER Impression: 1. Calcified focus within the right renal pelvis without significant hydronephr osis. This appears relatively unchanged compared to the prior exam and may repr esent a calculus within the collecting system however a calcified lesion is not excluded. Correlate with urinalysis. Ureteroscopy may be of benefit. 2. Complex appearing cystic focus within the left kidney which appears partiall y calcified although there is no corresponding lesion noted in this area on the previous CT. This may not represent a partially calcified complex cyst, with e tiologies are not excluded. Six-month follow-up is recommended to assess stabil ity.
== END 2025-07-31 07:45 | disposition home or self-care (01) ==
PROVIDERS: PCP Nurse Practitioner; Visit Provider Nurse Practitioner
DX: R93.422 Abnormal radiologic findings on diagnostic imaging of left kidney (principal); R93.421 Abnormal radiologic findings on diagnostic imaging of right kidney; N20.0 Calculus of kidney; N28.89 Other specified disorders of kidney and ureter; R17 Unspecified jaundice
CPT/HCPCS: 76700

== ENCOUNTER 2025-08-06 12:42 | Outpatient (CLI) | payer MEDICARE, BC, SELFPAY ==
[2025-08-06 13:39] LABS: Add Urine Microscopic? YES; Appearance Urine Cloudy (Clear); Glucose Urine UA Negative (Negative); Leukocyte Esterase Ur 1+ LEU/UL (Negative); Need Manual Microscopic Reviewed; Nitrate Urine Negative (Negative); Specific Grav Ur 1.031 (1.001-1.035)
[2025-08-06 13:49] LABS: INR 1.0; Prothrombin Time 13.0 Seconds (11.1-14.7)
[2025-08-06 13:51] LABS: Partial Thromboplastin Time 25.0 Seconds (22.3-36.8)
== END 2025-08-06 12:43 | disposition home or self-care (01) ==
LOC: ANHSURGERY 12:47
PROVIDERS: PCP Nurse Practitioner; Visit Provider Urology
DX: Z01.818 Encounter for other preprocedural examination (principal); N20.0 Calculus of kidney
CPT/HCPCS: 36415; 81001; 85610; 85730; 87086

== ENCOUNTER 2025-08-08 01:18 | Day surgery (SDC) | payer MEDICARE, BC, SELFPAY ==
[2025-08-06 10:15] VITALS: BMI 20.6
--- NOTE | 2025-08-06 10:20 | PC.NURSE ---
[facility] has started construction of its new state of the art ER which will open Spring 2026. With this, we anticipate parking may be a challenge for some our surgical patients and families. Parking spaces are limited but are available for all Surgical, obstetrics, and ER patients sharing this lot. If you arrive and find you are having a hard time finding a parking space, please note that we understand the challenges, please drive around the hospital and park near Hospital Entrance 1. When you enter this entrance, you can ask a volunteer to direct or take you back to the surgical waiting area to check in. We appreciate everyone?s understanding of these expected challenges while we build for your future. Report to the Outpatient Waiting Room, entrance under the green pavilion located off [address], at time on date . Planned Procedure Time: .? Time changes happen often and if your time is changed the preop area will call you the afternoon before. - You and your visitor will be asked to self-screen and do not enter if you have any COVID symptoms. Please call surgeon if you need to reschedule. - A mask is optional within the hospital at this time. Patients may have clear liquids (water, carbonated beverages, clear teas, apple juice) until 3 hours prior to surgery with a maximum of 20 ounces. - No food from midnight until time of surgery and no smoking, or chewing tobacco (or any form of nicotine). No chewing gum, candy or mints. - Infants may have breast milk until 4 hours before surgery, formula 6 hours prior to surgery. - Children will be allowed to drink immediately following surgery.? If applicable, please bring a bottle or sippy cup to assist with drinking. Juice, water, soda, and popsicles are readily available.? For infants on formula, please bring formula the day of surgery.? Pacifiers are allowed. Take only the following medications with a SIP of water on the morning of surgery: DO NOT STOP ANY OF YOUR OTHER PRESCRIPTION MEDICATIONS PRIOR TO SURGERY EXCEPT THE FOLLOWING Hold all vitamins and supplements for 3 days per anesthesiologist. Medications to discontinue per physician Date to take last dose Please no make-up, nail japanese, hairspray, perfume, deodorant, or body powder the day of surgery.? No jewelry (including any body piercings) or valuables the day of surgery, leave them at home.? Please take a shower or bath the night before, or the morning of, surgery with an antibacterial soap.? Wear comfortable, loose fitting clothing.? Children are encouraged to wear pajamas. - Jewelry must be removed prior to entering the operating room.? Rings and piercings that are not removed may be cut off. - The hospital will not accept responsibility for valuables.? - Please leave all valuables, including medications, at home the day of surgery. If you are going home after surgery, a licensed ambulette driver must drive you home.? - NO public transportation without another adult if you receive anesthesia. - We recommend that an adult stay with you for 24 hours following discharge. - We also recommend that you do not drive, make important decision, drink alcoholic beverages, or take any drugs that were not prescribed by your health care provider for at least 24 hours after your discharge time. For Pediatric surgeries, we recommend two adults accompany the child home. Follow any additional instructions given to you from your surgeon. Telephone instructions given to and asked if any additional questions and then verbalized understanding. Patient advised to call surgeon office or pre surgery nurse liaison [phone] if any additional questions.
--- NOTE | 2025-08-06 10:21 | PC.NURSE ---
[facility] has started construction of its new state of the art ER which will open Spring 2026. With this, we anticipate parking may be a challenge for some our surgical patients and families. Parking spaces are limited but are available for all Surgical, obstetrics, and ER patients sharing this lot. If you arrive and find you are having a hard time finding a parking space, please note that we understand the challenges, please drive around the hospital and park near Hospital Entrance 1. When you enter this entrance, you can ask a volunteer to direct or take you back to the surgical waiting area to check in. We appreciate everyone?s understanding of these expected challenges while we build for your future. Report to the Outpatient Waiting Room, entrance under the green pavilion located off [address], at time _0730_ on date 08/08/25_. Planned Procedure Time: _09 .? Time changes happen often and if your time is changed the preop area will call you the afternoon before. - You and your visitor will be asked to self-screen and do not enter if you have any COVID symptoms. Please call surgeon if you need to reschedule. - A mask is optional within the hospital at this time. Patients may have clear liquids (water, carbonated beverages, clear teas, apple juice) until 3 hours prior to surgery with a maximum of 20 ounces. - No food from midnight until time of surgery and no smoking, or chewing tobacco (or any form of nicotine). No chewing gum, candy or mints. Take only the following medications with a SIP of water on the morning of surgery: CITALOPRAM, LEVOTHYROXINE, GABAPENTIN DO NOT STOP ANY OF YOUR OTHER PRESCRIPTION MEDICATIONS PRIOR TO SURGERY EXCEPT THE FOLLOWING Hold all vitamins and supplements for 3 days per anesthesiologist. Medications to discontinue per physician NO LIDOCAINE PATCH DAY OF SURGERY Date to take last dose Please no make-up, nail malian, hairspray, perfume, deodorant, or body powder the day of surgery.? No jewelry (including any body piercings) or valuables the day of surgery, leave them at home.? Please take a shower or bath the night before, or the morning of, surgery with an antibacterial soap.? Wear comfortable, loose fitting clothing.? Children are encouraged to wear pajamas. - Jewelry must be removed prior to entering the operating room.? Rings and piercings that are not removed may be cut off. - The hospital will not accept responsibility for valuables.? - Please leave all valuables, including medications, at home the day of surgery. If you are going home after surgery, a licensed regional intermodal truck driver must drive you home.? - NO public transportation without another adult if you receive anesthesia. - We recommend that an adult stay with you for 24 hours following discharge. - We also recommend that you do not drive, make important decision, drink alcoholic beverages, or take any drugs that were not prescribed by your health care provider for at least 24 hours after your discharge time. For Pediatric surgeries, we recommend two adults accompany the child home. Follow any additional instructions given to you from your surgeon. Telephone instructions given to __PATIENT and asked if any additional questions and then verbalized understanding. Patient advised to call surgeon office or pre surgery nurse liaison [phone] if any additional questions.
[2025-08-08] VITALS (9 sets, daily range): BP systolic 120–139; BP diastolic 70–101; PULSE 62–101; RESP 14–24; TEMP 36.3–36.7; O2SAT 100
--- NOTE | ~2025-08-08 | XR_ITS ---
EXAM/PROCEDURE: XR abdomen/kub 1V HISTORY: ESWL COMPARISON: CT exam from July 21 TECHNIQUE: KUB FINDINGS: 1.4 x 0.4 cm calcification overlying the midpole of the right kidney region possibly corresponds to right UPJ stone described on the recent CT exam. The remainder the exam is unremarkable. IMPRESSION: Possible 1.4 x 0.4 cm right UPJ stone. Reviewed, dictated and finalized at location A. [facility]
--- NOTE | 2025-08-08 06:27 | WPDHPUPDATE1 ---
History and Physical Update Update Date/Time: 08/08/25 06:27 History and Physical has been reviewed, including an updated exam of the patient. There are NO changes in the patient's condition. Risks, benefits, and alternatives have been discussed and questions answered. Patient agrees to proceed with procedure.
[2025-08-08] MEDS: LACTATED RINGERS 1,000 ML 30 ML IV CONT ×2 (08:10→10:27)
[2025-08-08 08:36] LABS: BEDSIDEPREGUCG Negative (Negative)
--- NOTE | 2025-08-08 09:00 | P.PNAN_ITS ---
Anes - Initial Pre Proc Eval Procedure: Operation Date: 08/08/25 09:30 Proposed Procedures p Right Extracorporeal Shock Wave Lithotripsy - James Newberry MD Date/Time: 08/08/25 09:00 Surgeon: James Newberry MD Pre Op Diagnosis: right kidney stone Patient Data Age: 50 Gender: F Height: 1.68 m Weight: 56 kg Last Vital Signs Temp 97.3 F L 08/08/25 08:23 Pulse 76 08/08/25 08:23 Resp 18 08/08/25 08:23 BP 120/70 08/08/25 08:23 Pulse Ox 100 08/08/25 08:23 O2 Del Method Room Air 08/08/25 08:23 Allergies Allergy/AdvReac Type Severity Reaction Status Date / Time No Known Allergies Allergy Verified 08/08/25 08:20 Home Medications ?Medication ?Instructions ?Recorded ?Confirmed ?Type multivitamin 1 tablet PO DAILY 11/02/23 1 10/09/24 History lidocaine 5 % topical patch 1 patch topical DAILY #30 ea 12/10/24 08/08/25 Rx citalopram 40 mg tablet See Rx Instructions .Route 0 04/24/25 08/08/25 Rx .COMPLEX #90 tabs gabapentin 300 mg capsule 300 mg PO BID #60 caps 05/2908/08/25 Rx meloxicam 15 mg tablet 15 mg PO DAILY #30 tabs 10/0 05/1508/08/25 Rx ibuprofen 400 mg tablet 400 mg PO Q6H PRN pain #30 t abs 07/21/25 08/06/25 Rx ondansetron 4 mg disintegrating 4 mg PO Q8H PRN nausea and 07/21/25 08/08/25 Rx tablet vomiting #14 tabs levothyroxine 50 mcg tablet 50 mcg PO DAILY #90 tabs 1 10/08/24 08/08/25 Rx (Synthroid) Laboratory Tests 08/08/25 07:50 POC Urine HCG, Qual Negative (Negative) Patient hx anesthesia problems: none Family hx anesthesia problems: none Results Review: All pre-operative results and documents have been reviewed as part of the pre- operative evaluation. [facility] Past Medical History Medical History BMI 20.0-20.9, adult Compression fracture of lumbosacral spine Lower back pain Cervical myelopathy with cervical radiculopathy Family History Family History Father Malignant neoplasm of prostate Hypertension Heart problem Cerebrovascular accident Mother Diabetes mellitus Hypertension Sibling Depression Anxiety Thyroid disorder Grandparent Hypertension Heart problem Social History Social History Social History: Caffeine- Tea, Cola Smoking status: Never smoker Second hand tobacco smoke exposure: No Alcohol intake: never Substance use: never Substance use type: does not use Lack of Transportation: No Lack of Food: Never True Current Housing: I Have Housing Concerned About Future Housing: No Difficulty Paying Gas/Electric Bills: No Difficulty Paying for Meds: No Currently Unemployed: No Education: High School Diploma/GED Difficulty w/ Childcare or Family Care: No Living arrangements: with family Occupation/Education: unemployed Gender identity (if verbalized by the patient): Female Anes - Eval Final PreProcedure Day of Procedure 08/08/25 09:00 Patient weight: normal Lungs: normal air movement Airway: Mallampati scale class II Neurological: alert and oriented Last oral intake: >/= 8 hours ASA classification: II Emergent: no Anesthetic plan: proceed Anesthesia type and monitoring: general LMA and standard monitoring Results Review: All pre-operative results and documents have been reviewed as part of the pre- operative evaluation. Hypothyroidism, anxiety, pt occ walks treadmill, no cp or sob. Selective mutism noted, pt only nod or shakes head. Eval w mother at bedside. Informed Consent: The patient's anesthetic plan and its attendant risks and benefits were discussed with the patient/family/POA. Questions were solicited and answers provided to the satisfaction of the patient/family/POA.
[2025-08-08] MEDS: ceFAZolin 2 GM in SODIUM CHLORIDE 0.9% IV 50 ML 100 ML IVPB (09:38)
--- NOTE | 2025-08-08 10:17 | W.PM.PROC2 ---
Procedure Note - Detailed Date of Procedure 08/08/25 Pre-op Diagnosis Right kidney stone Post-op Diagnosis Same Procedure Performed Right ESWL Surgeon James Newberry MD Anesthesia General Description of Procedure The patient was brought to the operative suite where he was placed in the supine position on the Dornier lithotripsy table. The focal point of the lithotripter was placed at a 7mm right renal calculus. A total of 2500 shocks were delivered at a power setting of 4. After 300 shocks at a power of 1, a three minute pause was inserted. There appeared to be good fragmentation of the stone. The patient tolerated the procedure well and was taken to the recovery room in good condition. Drains No Pathology None sent Complications No immediate complications
[2025-08-08] MEDS: oxyCODONE HCL (*CRX) 5 MG TAB IR PO (11:42)
== END 2025-08-08 12:45 | disposition home or self-care (01) ==
PROVIDERS: PCP Nurse Practitioner; Visit Provider Urology
PROC: (CPT 50590; principal; 2025-08-08 09:30)
DX: N20.0 Calculus of kidney (principal); E03.9 Hypothyroidism, unspecified; F41.9 Anxiety disorder, unspecified; Z79.1 Long term (current) use of non-steroidal anti-inflammatories (NSAID); Z80.42 Family history of malignant neoplasm of prostate; Z82.49 Family history of ischemic heart disease and other diseases of the circulatory system
CPT/HCPCS: 50590; 74018; J0690; A9270; J1100; J2405; J2704; J7120